=== PATIENT | male | born 2000 | race Caucasian/White ===

== ENCOUNTER 2024-10-11 09:02 | Emergency (ER) | payer BC ==
[~2024-10-11] VITALS: Ht 170.2 cm; Wt 65.0 kg
[2024-10-11 09:03] VITALS: BP 105/65; PULSE 61; RESP 16; TEMP 97.9; O2SAT 97
[2024-10-11] MEDS ORDERED: ONDANSETRON HCL 4MG/2ML INJ IV STA (09:07)
[2024-10-11 09:47] LABS: BASOPHILS % 0.5 % (0.0-2.0); EOSINOPHILS % 1.3 % (0.0-5.0); HEMATOCRIT. 43.4 % (42.0-52.0); HEMOGLOBIN. 14.4 g/dL (14.0-18.0); LYMPHOCYTES % 30.7 % (20.0-50.0); MEAN CORPUSCULAR HEMOGLOBIN 30.4 pg (28.0-32.0); MEAN CORPUSCULAR HGB CONC 33.2 g/dL (31.0-37.0); MEAN CORPUSCULAR VOLUME 91.6 fL (80.0-94.0); MEAN PLATELET VOLUME 8.5 fl (7.4-10.4); NEUTROPHILS % 59.5 % (40.0-76.0); PLATELET 238 x1000/uL (130-400); RED BLOOD CELL COUNT 4.74 mill/uL (4.7-6.1); WHITE BLOOD COUNT 4.9 x1000/uL (4.5-11.0)
[2024-10-11 09:52] LABS: CHLORIDE 106 mEq/L (98-107); POTASSIUM 4.3 mEq/L (3.5-5.1); SODIUM 140 mEq/L (136-145)
[2024-10-11 09:53] LABS: CARBON DIOXIDE 27 mEq/L (21-32)
[2024-10-11 09:54] LABS: CALCIUM 9.7 mg/dL (8.7-10.4)
[2024-10-11 09:58] LABS: CREATININE 0.9 mg/dL (0.6-1.3); GLUCOSE 118 mg/dL (70-105)
[2024-10-11 09:59] LABS: UREA NITROGEN BLOOD 7 mg/dL (9-23)
[2024-10-11 10:08] LABS: TROPONIN I HIGH SENSITIVITY < 4 ng/L (3.0-53)
== END 2024-10-11 11:12 | disposition home or self-care (01) ==
LOC: ER 09:02
DX: R55 Syncope and collapse (principal)
CPT/HCPCS: 36415; 71045; 80048; 84484; 85025; 99284